=== PATIENT | male | born 1935 | race Caucasian/White ===

== ENCOUNTER 2017-01-10 05:32 | Inpatient (IN) | payer MEDICARE, BC ==
[2017-01-07 13:31] LABS: BASOPHILS 0.3 %; BASOPHILS ABSOLUTE 0.02 10/3/uL (0.0-0.16); EOSINOPHILS 8.7 %; EOSINOPHILS ABSOLUTE 0.64 10/3/uL (0.0-0.53); HEMATOCRIT 38.9 % (40.0-51.0); HEMOGLOBIN 13.4 g/dL (13.6-17.8); IMMATURE GRANULOCYTES 0.4 %; IMMATURE GRANULOCYTES ABSOLUTE 0.03 10/3/uL (0.0-0.11); LYMPHOCYTES 22.3 %; LYMPHOCYTES ABSOLUTE 1.65 10/3/uL (0.67-4.30); MEAN CORPUS HGB CONC 34.4 g/dL (32.0-36.0); MEAN CORPUSCULAR HEMOGLOB 29.1 pg (26.0-34.0); MEAN CORPUSCULAR VOLUME 84.4 fL (80-100); MEAN PLATELET VOLUME 9.5 fL (9.2-13.0); MONOCYTES 7.3 %; MONOCYTES ABSOLUTE 0.54 10/3/uL (0.21-1.20); NEUTROPHILS ABSOLUTE 4.51 10/3/uL (2.02-8.40); PLATELET COUNT 266 10/3/uL (150-400); RBC DISTRIBUTION WIDTH 13.6 % (12.0-16.0); RED CELL COUNT 4.61 10/6/uL (4.7-6.1); WHITE BLOOD CELLS 7.4 10/3/uL (4.5-10.5)
[2017-01-07 13:33] LABS: MANUAL DIFF NO %
[2017-01-07 13:38] LABS: INTERNATIONAL NORMAL RATI 1.1 UNITS (-); PROTIME (NOT ORD) 13.6 SEC (12.0-14.5)
[2017-01-07 13:50] LABS: % IRON SAT 21 % (20-50); A/G RATIO 1.3 (0.7-1.9); ALBUMIN 4.2 G/DL (3.5-5.0); ALKALINE PHOSPHATASE 37 U/L (45-117); BUN (BLOOD UREA NITROGEN) 37 MG/DL (6-23); CALCIUM, SERUM 10.6 MG/DL (8.5-10.4); CHLORIDE, SERUM 102 MMOL/L (96-112); CO2 (CARBON DIOXIDE) 27 MMOL/L (24-34); CREATININE 1.75 MG/DL (0.70-1.30); GFR AFRICAN AMERICAN 42 ML/MIN (>=60); GFR NON AFRICAN AMERICAN 36 ML/MIN (>=60); GLOBULIN 3.3 G/DL (2.5-4.1); GLUCOSE, SERUM 109 MG/DL (60-99); IRON BINDING CAPACITY 445 MCG/DL (250-450); IRON, SERUM 95 MCG/DL (35-150); POTASSIUM, SERUM 4.1 MMOL/L (3.5-5.3); SGOT(AST) 20 U/L (5-40); SGPT(ALT) 35 U/L (5-65); SODIUM, SERUM 138 MMOL/L (135-148); TOTAL BILIRUBIN 0.5 MG/DL (0-1.2); TOTAL PROTEIN 7.5 G/DL (6.0-8.5)
[2017-01-07 16:32] LABS: ASCORBIC ACID (UR NOT ORDER) NEG (NEG); BILIRUBIN, URINE NEGATIVE (NEG); KETONE, URINE NEGATIVE (NEG); LEUKOCYTE ESTERASE(NOT OR NEG (NEG); WBC (NOT ORDERED) (RFLEX) < 1 (0-5)
--- NOTE | ~2017-01-10 | OP ---
Record Of Operation [facility] [address] [place]. [address] NAME: DYLAN EUGENE : 37 STATUS : ADM IN PAT#: [id number] AGE: 81 ADM/REG DATE : 01/10/17 MR#: [id number] REPORT SERV DATE: 01/10/17 DICTATED BY: JORGE ALANIZ DATE: 01/10/17 REPORT STATUS : Draft TRANSCRIBED BY: MODL DATE: 01/10/17 DATE OF PROCEDURE: 01/10/2017 PREOPERATIVE DIAGNOSIS: Critical aortic valve stenosis with severe two-vessel coronary artery disease including left main coronary stenosis and history of chronic atrial fibrillation. POSTOPERATIVE DIAGNOSIS: Critical aortic valve stenosis with severe two-vessel coronary artery disease including left main coronary stenosis and history of chronic atrial fibrillation. PROCEDURE: Aortic valve replacement with a 21 mm pericardial tissue valve, Harrington type; coronary artery bypass grafting x3 using endoscopic vein harvest utilizing left internal mammary artery to the LAD artery with reverse saphenous vein graft from the aorta to the obtuse marginal artery from the aorta to the posterior descending artery. Also ligation of left atrial appendage and transesophageal echocardiography. SURGEON: Jorge Alaniz M.D. ANESTHESIA: General endotracheal anesthesia, AA. Chest tubes placed were 2. Pacing wires 2 in the right ventricle and 2 in the right atrium. PERTINENT HISTORY: The patient is a 81-year-old gentleman referred by Dr. Jefferson with critical aortic stenosis and severe two-vessel coronary artery disease including left main coronary stenosis. The patient also has a history of atrial fibrillation. OPERATIVE FINDINGS: The patient has severely calcified trileaflet aortic valve. He had minimal mitral insufficiency by echocardiography and left main coronary stenosis and severe three-vessel coronary disease. Left ventricular function well preserved. OPERATIVE PROCEDURE: The patient was taken to the operating room, placed in supine position. Anesthesia was obtained. The patient was prepped and draped in the usual sterile fashion. Transesophageal echocardiogram was performed demonstrating only insignificant mitral insufficiency, but with critical aortic stenosis with severely calcified trileaflet aortic valve. Greater saphenous vein harvested to the lower extremity with an invasive technique and those wounds were closed in a two-layer fashion. Midline sternotomy incision was made and sternum was divided. Left internal mammary artery was dissected and found to have good flow. Heparin was infused. The patient was started on cardiopulmonary bypass. pulmonary vein. Retrograde and antegrade cardioplegic cannulas were placed. Cross-clamp was applied. Cardioplegia was infused in antegrade and retrograde fashion over a period of 15 minutes. The left atrial appendage was oversewn with running 4- 0 Prolene suture in a 2-layer vertical mattress running suture. The posterior descending artery was bypassed with reverse saphenous vein graft in an end-to-side fashion. The obtuse marginal artery was bypassed with reverse saphenous vein graft in an end-to-side fashion. The left internal mammary artery was used to bypass the LAD artery in an end-to-side Record Of Operation [place] [id number] [facility] [place]. [address] NAME: DYLAN EUGENE : 37 STATUS : ADM IN [facility]#: [id number] AGE: 81 ADM/REG DATE : 01/10/17 MR#: [id number] REPORT SERV DATE: 01/10/17 DICTATED BY: JORGE ALANIZ DATE: 01/10/17 REPORT STATUS : Draft TRANSCRIBED BY: TRACEE DATE: 01/10/17 fashion. The aortotomy was made in a hockey-stick fashion. Aortic valve was examined and found to be trileaflet and heavily calcified. The valve was excised and all calcium was debrided from the aortic anulus. A 21 mm size fit within the anulus. Two Ethibond pledgeted sutures were placed on the aortic anulus with pledgets on the left ventricular side. These were passed through the sewing ring of a 21 mm pericardial tissue valve, Harrington type. The valve was seated on the anulus. All sutures were tied with a Cor-Knot. Aortotomy was then closed with running 4-0 Prolene suture ascending aorta. Cross-clamp was removed. Good hemostasis was noted. Two pacing wires on the right ventricle and two on the right atrium and two chest tubes were placed. The patient was warmed to 36 centigrade to maintain a sinus rhythm. bradycardic, underwent atrial pacing. He was weaned from cardiopulmonary bypass. Protamine sulfate was infused. Hemostasis was adequate. The sternum was closed with four sternal cables. Soft tissue closed in a manner as stated above. The patient tolerated the procedure well and was taken back to the ICU in stable condition. SAY/TRACEE Jorge Alaniz M.D. / [id number] CC: Farhana Wilson M.D.
--- NOTE | ~2017-01-10 | CN ---
Consultation Report [facility] [address] [place]. [address] NAME: DYLAN EUGENE : 37 STATUS : ADM IN PAT#: [id number] AGE: 81 ADM/REG DATE : 01/10/17 MR#: [id number] REPORT SERV DATE: 01/12/17 DICTATED BY: FELICITY DOE DATE: 01/12/17 REPORT STATUS : Draft TRANSCRIBED BY: MODMali DATE: 01/12/17 DATE OF CONSULTATION: 01/12/2017 REASON FOR CONSULTATION: Postoperative diabetes management. HISTORY OF PRESENT ILLNESS: The patient is very pleasant 81-year-old male, who is status post aortic valve replacement and coronary artery bypass grafting on 01/10/[address] Jorge Alaniz. I am consulted for postoperative diabetes management. The patient reported that he has diabetes for many years. For his diabetes, he takes Lantus 70 units at bedtime, as well as he takes Humalog 15 units before meals. The patient said that he takes Lantus in the evening and in the morning, his blood sugar is in 100s. The patient did not have hypoglycemia at home. He says that he is eating significantly less here in the hospital than at home. He is sleepy, but he wakes up easily. He denies any shortness of breath. He is complaining of postsurgical chest pain. PAST MEDICAL HISTORY: Known for history of coronary artery disease, history of a heart attack in the past, history of prostate problem, diabetes. There are several orthopedic surgeries in the past. He has also BPH according to the patient. FAMILY HISTORY: There is a family history of diabetes on his parents, mother and father. HOME MEDICATIONS: Include Tylenol 500 p.o. daily p.r.n., Norvasc 10 mg a day, Eliquis 5 mg p.o. b.i.d., artificial tears daily, Nexium 40 mg daily, fenofibrate 145 daily, Proscar 5 mg a day, flecainide 100 mg b.i.d., HCTZ 25 daily, Lantus 70 units daily, insulin Humalog 15 units before meals, lisinopril 40 mg a day, metoprolol 25 p.o. b.i.d., multivitamins daily, nitroglycerin p.r.n. for chest pain, omega-3 fatty acids 2000 mg daily, simvastatin 80 mg a day, and Flomax 0.8 mg a day. SOCIAL HISTORY: No smoking. No alcohol. No recreational drug use. REVIEW OF SYSTEMS: 14-point review of systems done and negative, except what is stated in the history of present illness. PHYSICAL EXAMINATION: GENERAL: Well-nourished, well-developed male, not in acute distress, resting quietly. VITAL SIGNS: Blood pressure 137/74, heart rate 90, respiratory rate 17, oxygen saturation 92 on 4 L nasal cannula, temperature 99.7. HEENT: Head, atraumatic and normocephalic. Conjunctivae clear. Pupils are equal and reactive to light and accommodation. Extraocular muscles are intact. NECK: Supple. Trachea is midline. No supraclavicular or cervical lymphadenopathy. LUNGS: Diminished breath sounds bilaterally. Decreased respiratory effort. CARDIOVASCULAR SYSTEM: Regular rate and rhythm. Point of maximal impulse not displaced. ABDOMEN: Soft, nontender, nondistended. Positive normoactive bowel sounds. EXTREMITIES: No clubbing, cyanosis, or edema. Consultation Report [address] [place]. [address] NAME: DYLAN EUGENE : 37 STATUS : ADM IN [facility]#: [id number] AGE: 81 ADM/REG DATE : 01/10/17 MR#: [id number] REPORT SERV DATE: 01/12/17 DICTATED BY: FELICITY DOE DATE: 01/12/17 REPORT STATUS : Draft TRANSCRIBED BY: TRACEE DATE: 01/12/17 SKIN: Normal color and turgor. LABORATORY RESULTS: His blood sugar currently 88, 149, 149, 131. He requires from 4-6 units of insulin, and then he required 10 units the last time. His hemoglobin A1c is 6.3. Sodium 144, potassium 4.1, chloride 112, carbon dioxide 23, BUN 41, creatinine 1.436, blood sugar 101. White count 15.5, hemoglobin 9.7, hematocrit 29.1, and platelet count 154. ASSESSMENT AND PLAN: This is a 81-year-old male with a past medical history of diabetes. Status post surgery, I am consulted for management of his diabetes. His diabetes was controlled at home, and his blood sugar currently controlled on insulin drip. We are going to give him 35 units of Levemir now and we will stop his insulin drip one hour after Levemir given as well as he is already eating meals, we will put him on a NovoLog level 2 sliding scale. We will re-evaluate his blood sugar tomorrow. If necessary, we will increase his Levemir to his home dose if he will start eating more because he is now not eating much as at home, as well as we may put him tomorrow on a scheduled insulin before meals. Obesity. MG/MODL Felicity Doe M.D. / [id number] CC: Farhana Wilson M.D.
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
[~2017-01-10 05:32] MED LIST: ACET500CAP PO; ACTOS45 PO; ASAB PO; BETAPACE80 PO; C2 PO; CELEBREX2 PO; CENTRUM PO; CENTRUM TAB1 TAB PO; COUMADIN3 MG PO; COUMADIN4 MG PO; COUMADIN6 MG PO; ELIQUIS 5 MG TAB5 MG PO; FISH-EPA1000 MG PO; FLECAINIDE100 MG PO; FLEX PO; FLOMAX4 PO; GLUCCHONDR PO; GLUCOPHAGE1000 MG PO; GLUCOTRO10 PO; GLUCOTROL5 PO; GLUCPH PO; HCTZ25B PO; HUMALOGPEN SC; HYDROCHLOROT25 MG PO; JANTOVEN6 MG PO; LANTUS SC; LISINOPRIL40 MG PO; LOP25 PO; LOP50 PO; LORTAB 5 PO; LORTAB10 PO; MULTIPLE VIT PO; NEXIUM40 PO; NIFEDICAL XL30 MG PO; NIFEDICAL XL60 MG PO; NITROSTAT0.4 MG SL; NORCO1 TA1 PO; NORV10 PO; PROSCAR5 PO; REFRESH OPH SO0.3 ML OPH; T PO; TAMBOCOR PO; TEARS PLUS OPH; TRICOR145 PO; V2 PO; ZESTORETIC1 TA1 PO; ZOCOR10 PO; ZOCOR40 PO; ZOCOR80 MG PO
[2017-01-10 14:24] LABS: HEMOGLOBIN 10.9 g/dL (13.6-17.8)
[2017-01-10 14:25] LABS: HEMATOCRIT 31.7 % (40.0-51.0); PLATELET COUNT 164 10/3/uL (150-400)
[2017-01-10 14:32] LABS: INTERNATIONAL NORMAL RATI 1.5 UNITS (-); PARTIAL THROMBO TIME 31.8 SEC (22.5-37.2)
[2017-01-10 14:33] LABS: PROTIME (NOT ORD) 18.3 SEC (12.0-14.5)
[2017-01-10 14:38] LABS: CALCIUM, SERUM 9.7 MG/DL (8.5-10.4); CHLORIDE, SERUM 109 MMOL/L (96-112); CO2 (CARBON DIOXIDE) 26 MMOL/L (24-34); CREATININE 2.07 MG/DL (0.70-1.30); GFR AFRICAN AMERICAN 34 ML/MIN (>=60); GFR NON AFRICAN AMERICAN 30 ML/MIN (>=60); POTASSIUM, SERUM 3.8 MMOL/L (3.5-5.3); SODIUM, SERUM 143 MMOL/L (135-148)
[2017-01-10 14:43] LABS: BUN (BLOOD UREA NITROGEN) 44 MG/DL (6-23); GLUCOSE, SERUM 134 MG/DL (60-99)
[2017-01-10 17:42] LABS: BE (BASE EXCESS) -4.1 MEQ/L (0 +/- 2.5); CARBOXYHEMOGLOBIN 0.3 % (0-3); HCO3 (ACTUAL BICARBONATE) 21.4 MEQ/L (23-27); HEMOBLOGIN CONTENT 11.7 G/DL (14-18); INSTRUMENT SERIAL # 11843; METHEMOGLOBIN 0.4 % (0-3); MODE SIMV; O2 CONTENT 16.1 VOL% (18-24); OPERATOR ID 35188; PCO2 (CO2 TENSION) 41 MMHG (35-45); PO2 (O2 TENSION) 129 MMHG (79-93); SAMPLE Arterial; TIDAL VOLUME 700 ML; pH 7.34 (7.37-7.43)
[2017-01-10 19:29] LABS: BE (BASE EXCESS) -2.4 MEQ/L (0 +/- 2.5); CARBOXYHEMOGLOBIN 0.2 % (0-3); DEVICE NC; HCO3 (ACTUAL BICARBONATE) 22.3 MEQ/L (23-27); HEMOBLOGIN CONTENT 11.2 G/DL (14-18); INSTRUMENT SERIAL # 11843; METHEMOGLOBIN 0.4 % (0-3); O2 CONTENT 15.2 VOL% (18-24); OPERATOR ID 35188; PCO2 (CO2 TENSION) 38 MMHG (35-45); PO2 (O2 TENSION) 98 MMHG (79-93); SAMPLE Arterial; pH 7.39 (7.37-7.43)
[2017-01-10 19:55] LABS: HEMATOCRIT 30.6 % (40.0-51.0); HEMOGLOBIN 10.6 g/dL (13.6-17.8)
[2017-01-10 20:02] LABS: POTASSIUM, SERUM 4.1 MMOL/L (3.5-5.3)
[2017-01-11 03:31] LABS: HEMATOCRIT 29.3 % (40.0-51.0); MEAN CORPUS HGB CONC 34.1 g/dL (32.0-36.0); MEAN CORPUSCULAR HEMOGLOB 28.7 pg (26.0-34.0); MEAN CORPUSCULAR VOLUME 84.2 fL (80-100); MEAN PLATELET VOLUME 9.5 fL (9.2-13.0); PLATELET COUNT 163 10/3/uL (150-400); RBC DISTRIBUTION WIDTH 14.1 % (12.0-16.0)
[2017-01-11 03:35] LABS: MANUAL DIFF YES %; RED CELL COUNT 3.48 10/6/uL (4.7-6.1); WHITE BLOOD CELLS 12.2 10/3/uL (4.5-10.5)
[2017-01-11 03:45] LABS: INTERNATIONAL NORMAL RATI 1.3 UNITS (-); PROTIME (NOT ORD) 15.9 SEC (12.0-14.5)
[2017-01-11 03:47] LABS: BUN (BLOOD UREA NITROGEN) 39 MG/DL (6-23); CALCIUM, SERUM 9.3 MG/DL (8.5-10.4); CHLORIDE, SERUM 115 MMOL/L (96-112); CO2 (CARBON DIOXIDE) 23 MMOL/L (24-34); GFR AFRICAN AMERICAN 47 ML/MIN (>=60); GFR NON AFRICAN AMERICAN 40 ML/MIN (>=60); GLUCOSE, SERUM 112 MG/DL (60-99); POTASSIUM, SERUM 3.7 MMOL/L (3.5-5.3); SODIUM, SERUM 148 MMOL/L (135-148)
[2017-01-11 04:00] LABS: BAND NEUTROPHILS 6 %; LYMPHOCYTES 6 %; LYMPHOCYTES ABSOLUTE (CALC) 0.73 10/3/uL (0.67-4.30); MONOCYTES 4 %; MONOCYTES ABSOLUTE (CALC) 0.49 10/3/uL (0.21-1.20); NEUTROPHILS ABSOLUTE (CALC) 10.98 10/3/uL (2.02-8.40); SEGMENTED NEUTROPHIL (0) 84 %; TOTAL NUCLEATED CELLS 100
[2017-01-11 04:01] LABS: PLATELET ESTIMATE ADQ (ADEQUATE); RBC MORPHOLOGY NORM (NORMAL)
[2017-01-12 03:58] LABS: BASOPHILS 0.1 %; BASOPHILS ABSOLUTE 0.01 10/3/uL (0.0-0.16); EOSINOPHILS 0 %; HEMATOCRIT 29.1 % (40.0-51.0); HEMOGLOBIN 9.7 g/dL (13.6-17.8); IMMATURE GRANULOCYTES 0.5 %; IMMATURE GRANULOCYTES ABSOLUTE 0.07 10/3/uL (0.0-0.11); LYMPHOCYTES 8.7 %; LYMPHOCYTES ABSOLUTE 1.34 10/3/uL (0.67-4.30); MEAN CORPUS HGB CONC 33.3 g/dL (32.0-36.0); MEAN PLATELET VOLUME 9.6 fL (9.2-13.0); MONOCYTES 9.4 %; MONOCYTES ABSOLUTE 1.46 10/3/uL (0.21-1.20); NEUTROPHILS 81.3 %; PLATELET COUNT 154 10/3/uL (150-400); RBC DISTRIBUTION WIDTH 15.1 % (12.0-16.0); RED CELL COUNT 3.35 10/6/uL (4.7-6.1); WHITE BLOOD CELLS 15.5 10/3/uL (4.5-10.5)
[2017-01-12 04:02] LABS: MANUAL DIFF NO %; MEAN CORPUSCULAR VOLUME 86.9 fL (80-100)
[2017-01-12 04:10] LABS: BUN (BLOOD UREA NITROGEN) 41 MG/DL (6-23); CALCIUM, SERUM 9.2 MG/DL (8.5-10.4); CHLORIDE, SERUM 112 MMOL/L (96-112); CO2 (CARBON DIOXIDE) 23 MMOL/L (24-34); CREATININE 1.46 MG/DL (0.70-1.30); GFR AFRICAN AMERICAN 52 ML/MIN (>=60); GFR NON AFRICAN AMERICAN 45 ML/MIN (>=60); GLUCOSE, SERUM 101 MG/DL (60-99); POTASSIUM, SERUM 4.1 MMOL/L (3.5-5.3); SODIUM, SERUM 144 MMOL/L (135-148)
[2017-01-13 03:59] LABS: BASOPHILS 0.1 %; BASOPHILS ABSOLUTE 0.01 10/3/uL (0.0-0.16); EOSINOPHILS 0.3 %; EOSINOPHILS ABSOLUTE 0.05 10/3/uL (0.0-0.53); HEMATOCRIT 29.2 % (40.0-51.0); HEMOGLOBIN 9.8 g/dL (13.6-17.8); IMMATURE GRANULOCYTES 0.4 %; IMMATURE GRANULOCYTES ABSOLUTE 0.06 10/3/uL (0.0-0.11); LYMPHOCYTES 9.2 %; LYMPHOCYTES ABSOLUTE 1.33 10/3/uL (0.67-4.30); MEAN CORPUS HGB CONC 33.6 g/dL (32.0-36.0); MEAN CORPUSCULAR HEMOGLOB 28.9 pg (26.0-34.0); MEAN CORPUSCULAR VOLUME 86.1 fL (80-100); MEAN PLATELET VOLUME 9.5 fL (9.2-13.0); MONOCYTES 6.7 %; MONOCYTES ABSOLUTE 0.97 10/3/uL (0.21-1.20); NEUTROPHILS 83.3 %; NEUTROPHILS ABSOLUTE 12.02 10/3/uL (2.02-8.40); NUCLEATED RED BLOOD CELLS 0.2 /100WBC (0-0); PLATELET COUNT 157 10/3/uL (150-400); RBC DISTRIBUTION WIDTH 14.9 % (12.0-16.0); RED CELL COUNT 3.39 10/6/uL (4.7-6.1); WHITE BLOOD CELLS 14.4 10/3/uL (4.5-10.5)
[2017-01-13 04:00] LABS: MANUAL DIFF NO %
[2017-01-13 04:13] LABS: CALCIUM, SERUM 9.9 MG/DL (8.5-10.4); CHLORIDE, SERUM 107 MMOL/L (96-112); CO2 (CARBON DIOXIDE) 23 MMOL/L (24-34); CREATININE 1.32 MG/DL (0.70-1.30); GFR AFRICAN AMERICAN 59 ML/MIN (>=60); GFR NON AFRICAN AMERICAN 51 ML/MIN (>=60); POTASSIUM, SERUM 4.2 MMOL/L (3.5-5.3); SODIUM, SERUM 140 MMOL/L (135-148)
[2017-01-13 04:14] LABS: BUN (BLOOD UREA NITROGEN) 31 MG/DL (6-23); GLUCOSE, SERUM 144 MG/DL (60-99)
[2017-01-14 04:52] LABS: BASOPHILS 0.1 %; BASOPHILS ABSOLUTE 0.01 10/3/uL (0.0-0.16); EOSINOPHILS 2.6 %; EOSINOPHILS ABSOLUTE 0.26 10/3/uL (0.0-0.53); HEMATOCRIT 28.9 % (40.0-51.0); HEMOGLOBIN 9.6 g/dL (13.6-17.8); IMMATURE GRANULOCYTES 0.6 %; IMMATURE GRANULOCYTES ABSOLUTE 0.06 10/3/uL (0.0-0.11); LYMPHOCYTES 10.5 %; LYMPHOCYTES ABSOLUTE 1.06 10/3/uL (0.67-4.30); MEAN CORPUS HGB CONC 33.2 g/dL (32.0-36.0); MEAN CORPUSCULAR HEMOGLOB 28.4 pg (26.0-34.0); MEAN CORPUSCULAR VOLUME 85.5 fL (80-100); MEAN PLATELET VOLUME 9.5 fL (9.2-13.0); MONOCYTES 10.2 %; MONOCYTES ABSOLUTE 1.03 10/3/uL (0.21-1.20); NEUTROPHILS ABSOLUTE 7.64 10/3/uL (2.02-8.40); PLATELET COUNT 174 10/3/uL (150-400); RBC DISTRIBUTION WIDTH 14.3 % (12.0-16.0); RED CELL COUNT 3.38 10/6/uL (4.7-6.1); WHITE BLOOD CELLS 10.1 10/3/uL (4.5-10.5)
[2017-01-14 04:54] LABS: MANUAL DIFF NO %
[2017-01-14 05:00] LABS: CALCIUM, SERUM 9.2 MG/DL (8.5-10.4); CHLORIDE, SERUM 104 MMOL/L (96-112); CO2 (CARBON DIOXIDE) 26 MMOL/L (24-34); CREATININE 1.31 MG/DL (0.70-1.30); GFR AFRICAN AMERICAN 60 ML/MIN (>=60); GFR NON AFRICAN AMERICAN 51 ML/MIN (>=60); POTASSIUM, SERUM 3.8 MMOL/L (3.5-5.3); SODIUM, SERUM 139 MMOL/L (135-148)
[2017-01-14 05:26] LABS: BUN (BLOOD UREA NITROGEN) 35 MG/DL (6-23); GLUCOSE, SERUM 214 MG/DL (60-99)
[2017-01-16 11:44] LABS: BASOPHILS 0.1 %; BASOPHILS ABSOLUTE 0.01 10/3/uL (0.0-0.16); EOSINOPHILS 3.6 %; EOSINOPHILS ABSOLUTE 0.32 10/3/uL (0.0-0.53); HEMATOCRIT 27.5 % (40.0-51.0); HEMOGLOBIN 9.2 g/dL (13.6-17.8); IMMATURE GRANULOCYTES 2.2 %; IMMATURE GRANULOCYTES ABSOLUTE 0.19 10/3/uL (0.0-0.11); LYMPHOCYTES 12.8 %; LYMPHOCYTES ABSOLUTE 1.12 10/3/uL (0.67-4.30); MEAN CORPUS HGB CONC 33.5 g/dL (32.0-36.0); MEAN CORPUSCULAR HEMOGLOB 28.2 pg (26.0-34.0); MEAN CORPUSCULAR VOLUME 84.4 fL (80-100); MEAN PLATELET VOLUME 9.4 fL (9.2-13.0); MONOCYTES 7.5 %; MONOCYTES ABSOLUTE 0.66 10/3/uL (0.21-1.20); NEUTROPHILS 73.8 %; NEUTROPHILS ABSOLUTE 6.48 10/3/uL (2.02-8.40); NUCLEATED RED BLOOD CELLS 0.3 /100WBC (0-0); PLATELET COUNT 195 10/3/uL (150-400); RBC DISTRIBUTION WIDTH 14.1 % (12.0-16.0); RED CELL COUNT 3.26 10/6/uL (4.7-6.1); WHITE BLOOD CELLS 8.8 10/3/uL (4.5-10.5)
[2017-01-16 11:45] LABS: MANUAL DIFF NO %
[2017-01-16 11:50] LABS: INTERNATIONAL NORMAL RATI 1.2 UNITS (-); PARTIAL THROMBO TIME 29.2 SEC (22.5-37.2); PROTIME (NOT ORD) 14.7 SEC (12.0-14.5)
[2017-01-17 05:35] LABS: INTERNATIONAL NORMAL RATI 1.2 UNITS (-); PARTIAL THROMBO TIME 37.5 SEC (22.5-37.2)
[2017-01-17] MEDS ORDERED: ASAB PO (16:06)
[2017-01-17] MEDS ORDERED: LOVENOX1C SC (16:09)
[2017-01-17] MEDS ORDERED: C5 PO (16:11)
[2017-02-19] MEDS ORDERED: NORV10 PO (13:42)
[2017-02-19] MEDS ORDERED: NITROSTAT0.4 MG SL (13:42)
[2017-02-19] MEDS ORDERED: LOM PO (13:43)
[2017-02-19] MEDS ORDERED: L20 PO (13:43)
[2017-02-20] MEDS ORDERED: PROTONIX PO (10:39)
== END 2017-01-17 16:57 | disposition home health service (06) | DRG 220 ==
LOC: SDC/OF 05:32 → CVICU 12:00 → 5NO 01-13 11:55
PROVIDERS: Anesthesiology; Internal Medicine Interventional Cardiology; Nurse Practitioner Family; Thoracic Surgery (Cardiothoracic Vascular Surgery)
PROC: 06BP0ZZ Excision of Right Saphenous Vein, Open Approach (ICD-10-PCS; 2017-01-10)
PROC: 5A1221Z Performance of Cardiac Output, Continuous (ICD-10-PCS; 2017-01-10)
PROC: B246ZZ4 Ultrasonography of Right and Left Heart, Transesophageal (ICD-10-PCS; 2017-01-10)
PROC: 02570ZK Destruction of Left Atrial Appendage, Open Approach (ICD-10-PCS; 2017-01-10)
PROC: 02RF08Z Replacement of Aortic Valve with Zooplastic Tissue, Open Approach (ICD-10-PCS; principal; 2017-01-10 07:30)
PROC: 02100Z9 Bypass Coronary Artery, One Artery from Left Internal Mammary, Open Approach (ICD-10-PCS; 2017-01-10 07:30)
PROC: 021109W Bypass Coronary Artery, Two Arteries from Aorta with Autologous Venous Tissue, Open Approach (ICD-10-PCS; 2017-01-10 07:30)
DX: I35.0 Nonrheumatic aortic (valve) stenosis (principal); K91.3 Postprocedural intestinal obstruction; I48.2 Chronic atrial fibrillation; E11.9 Type 2 diabetes mellitus without complications; I25.10 Atherosclerotic heart disease of native coronary artery without angina pectoris; N40.0 Benign prostatic hyperplasia without lower urinary tract symptoms; E66.9 Obesity, unspecified; Z83.3 Family history of diabetes mellitus; I25.2 Old myocardial infarction; Z79.4 Long term (current) use of insulin; Z79.899 Other long term (current) drug therapy
CPT/HCPCS: 36415; 71010; 71020; 74000; 74020; 80048; 80053; 81001; 82330; 82803; 82805; 82947; 82962; 83036; 83540; 83550; 83735; 84132; 84295; 85014; 85018; 85025; 85049; 85347; 85610; 85730; 86850; 86900; 86901; 86920; 87641; 88305; 93005; 93312; 93320; 93325; 94002; 94640; 94770; A9270-GY; C1713; C1725; C1769; C9113; J0690; J1160; J1644; J2150; J2250; J2370; J2405; J2440; J2720; J2765; J2930; J3010; J3475; J3480; P9045; P9047